=== PATIENT | female | born 1985 | race Caucasian/White ===

== ENCOUNTER 2017-01-09 02:19 | Emergency (ER) | payer SELFPAY ==
[2017-01-09 02:56] LABS: CALCIUM 8.3 mg/dL (8.5-10.1); CARBON DIOXIDE 30.4 mmol/L (21-32); CHLORIDE SERUM 109 mmol/L (98-107); CREATININE SERUM 0.8 mg/dL (0.6-1.0); GFR1 > 60 mL/min; GLUCOSE SERUM 88 mg/dL (74-106); POTASSIUM SERUM 3.6 mmol/L (3.5-5.1); SODIUM SERUM 145 mmol/L (136-145)
[2017-01-09 03:00] LABS: ALKALINE PHOSPHATASE 83 U/L (46-116); ALT/SGPT 294 U/L (14-59); AMYLASE 53 U/L (25-115); AST/SGOT 71 U/L (15-37); BILIRUBIN TOTAL 0.27 mg/dL (0.20-1.00); LIPASE 177 IU/L (73-393); TOTAL PROTEIN, SERUM 6.4 g/dL (6.4-8.2)
[2017-01-09 03:01] LABS: ALBUMIN 3.2 g/dL (3.4-5.0)
[2017-01-09 03:13] LABS: BASOPHIL % 0.5 % (0-2); PLATELET COUNT 201 x10^3mcL (130-400); RED CELL DISTRIBUTION WIDTH 12.5 % (11.5-14.5)
[2017-01-09 03:59] LABS: microscopic required? YES; urine erythrocyte 1+ (NEGATIVE)
[2017-01-09 06:24] VITALS: BP 117/53
== END 2017-01-09 06:24 | disposition home or self-care (01) ==
LOC: ED 02:19
PROVIDERS: Emergency Medicine
DX: N23 Unspecified renal colic (principal); R31.9 Hematuria, unspecified; Z87.442 Personal history of urinary calculi
CPT/HCPCS: J1170; J1885; J2270; Q0092; Q0162